=== PATIENT | female | born 1950 | race Caucasian/White ===

== ENCOUNTER 2023-07-08 06:22 | Inpatient (IN) | payer MEDICARE, OTHER ==
[~2023-07-08] VITALS: Ht 167.6 cm; Wt 96.2 kg
[2023-07-08] MEDS ORDERED: MORPHINE SULFATE INJ 2 MG/ML DISP.SYRIN ONE ×2 (06:53→08:13)
[2023-07-08] MEDS ORDERED: MORPHINE SULFATE INJ 2 MG/ML DISP.SYRIN IV ONE ×3 (07:00→08:00)
[2023-07-08] MEDS ORDERED: MORPHINE SULFATE INJ 4 MG/ML DISP.SYRIN ONE (07:32)
[2023-07-08 07:35] LABS: BASOPHILS % (AUTO) 0.4 % (0.0-2.0); EOSINOPHILS # (AUTO) 0.1 K/uL (0.0-0.7); EOSINOPHILS % (AUTO) 0.8 % (0.0-6.0); HEMATOCRIT 41 % (33-45); HEMOGLOBIN 13.2 g/dL (11.5-14.8); LYMPHOCYTES % (AUTO) 49.3 % (20.0-44.0); MEAN CORPUSCULAR HEMOGLOBIN 30 PG (26.0-33.0); MEAN CORPUSCULAR HGB CONC 33 g/dl (31.0-36.0); MEAN CORPUSCULAR VOLUME 93 fL (82-100); MONOCYTES # (AUTO) 0.4 K/uL (0.1-1.30); MONOCYTES % (AUTO) 5.3 % (2.0-12.0); NEUTROPHILS # (AUTO) 3.6 K/uL (1.8-8.9); NEUTROPHILS % (AUTO) 44.2 % (43.0-81.0); PLATELET COUNT (AUTO) 223 K/uL (150-450); WHITE BLOOD COUNT (AUTO) 8.1 K/uL (4.3-11.0)
[2023-07-08 07:44] LABS: CALCIUM, SERUM 8.9 mg/dL (8.5-10.1); CARBON DIOXIDE 27 mmol/L (21-32); CHLORIDE 109 mmol/L (98-107); CREATININE 0.7 mg/dL (0.6-1.3); GLUCOSE 133 mg/dL (74-106); POTASSIUM 4.7 mmol/L (3.5-5.1); SODIUM SERUM 141 mmol/L (136-145); UREA NITROGEN, BLOOD 25 mg/dL (7-18)
[2023-07-08 07:49] LABS: ALANINE AMINOTRANSFERASE 26 U/L (12-78); ALBUMIN 3.4 g/dL (3.4-5.0); ALKALINE PHOSPHATASE 63 U/L (46-116); ASPARTATE AMINOTRANSFERASE 14 U/L (15-37); BILIRUBIN,DIRECT 0.1 mg/dL (0.0-0.2); BILIRUBIN,TOTAL 0.5 mg/dL (0.2-1.0); TOTAL PROTEIN, SERUM 7.1 g/dL (6.4-8.2)
[2023-07-08 07:52] LABS: INR 1.12 (0.91-1.10); PARTIAL THROMBOPLASTIN TIME 23.8 SEC (24.3-34.3); PROTHROMBIN TIME 11.7 SECS (9.2-11.1)
[2023-07-08] MEDS ORDERED: Z GUARD REMEDY 4 OZ OINT TP PRN (11:00)
[2023-07-08] MEDS ORDERED: MAGNESIUM HYDROXIDE 30 ML UDC PO PRN (11:00)
[2023-07-08] MEDS ORDERED: MAG HYDROX/AL HYDROX/SIMETH 30 ML UDC PO PRN (11:00)
[2023-07-08] MEDS ORDERED: PANTOPRAZOLE 40 MG VIAL IV SCH (11:00)
[2023-07-08] MEDS ORDERED: ACETAMINOPHEN 325 MG TABLET PO PRN (11:00)
[2023-07-08] MEDS ORDERED: ONDANSETRON HCL/PF 4 MG/2 ML VIAL IVP PRN (11:00)
[2023-07-08] MEDS: MORPHINE SULFATE INJ 4 MG/ML DISP.SYRIN IV PRN ×3 (11:31→21:33)
[2023-07-08 12:00] VITALS: BP 165/86; TEMP 98.2; O2SAT 97
[2023-07-08] MEDS: IV 1/2NS 1000 ML 1,000 ML IV PRN (12:25)
[2023-07-08] MEDS ORDERED: PANT20TA2 PO (15:05)
[2023-07-08] MEDS ORDERED: METO25TA3 PO (15:05)
[2023-07-08] MEDS ORDERED: OLME1TAB16 PO (15:05)
[2023-07-08] MEDS ORDERED: ESCI20TA PO (15:05)
[2023-07-08] MEDS ORDERED: CLON0.1T PO (15:05)
[2023-07-08] MEDS ORDERED: LOVA10TA PO (15:05)
[2023-07-08] MEDS: ENOXAPARIN SODIUM 40 MG/0.4 ML DISP.SYRIN SQ SCH (15:12)
[2023-07-08 16:00] VITALS: BP 157/77; TEMP 99; O2SAT 96
[2023-07-08 20:00] VITALS: BP 149/82; TEMP 98.8; O2SAT 96
[2023-07-09] VITALS (7 sets, daily range): BP systolic 133–175; BP diastolic 68–79; TEMP 97.9–99.5; O2SAT 95–98
[2023-07-09] MEDS: MORPHINE SULFATE INJ 4 MG/ML DISP.SYRIN IV PRN ×3 (01:44→10:22)
[2023-07-09] MEDS: IV 1/2NS 1000 ML 1,000 ML IV PRN ×2 (01:44→17:52)
[2023-07-09 06:13] LABS: BASOPHILS % (AUTO) 0.3 % (0.0-2.0); EOSINOPHILS # (AUTO) 0.1 K/uL (0.0-0.7); EOSINOPHILS % (AUTO) 0.9 % (0.0-6.0); HEMATOCRIT 39 % (33-45); LYMPHOCYTES % (AUTO) 31.2 % (20.0-44.0); MEAN CORPUSCULAR HEMOGLOBIN 30 PG (26.0-33.0); MEAN CORPUSCULAR HGB CONC 33 g/dl (31.0-36.0); MEAN CORPUSCULAR VOLUME 91 fL (82-100); MONOCYTES # (AUTO) 0.6 K/uL (0.1-1.30); MONOCYTES % (AUTO) 6.2 % (2.0-12.0); NEUTROPHILS % (AUTO) 61.4 % (43.0-81.0); PLATELET COUNT (AUTO) 208 K/uL (150-450); RED BLOOD CELL COUNT(AUTO) 4.29 MIL/uL (4.0-5.2); RED CELL DISTRIBUTION WIDTH 13.6 % (11.5-15.0); WHITE BLOOD COUNT (AUTO) 9.8 K/uL (4.3-11.0)
[2023-07-09 06:34] LABS: CALCIUM, SERUM 8.5 mg/dL (8.5-10.1); CREATININE 0.6 mg/dL (0.6-1.3); PHOSPHORUS 3.9 mg/dL (2.5-4.9); POTASSIUM 3.9 mmol/L (3.5-5.1)
[2023-07-09 07:07] LABS: THYROID STIMULATING HORMONE 1.189 uIU/mL (0.358-3.74)
[2023-07-09] MEDS: ATORVASTATIN 10 MG TABLET PO SCH (09:00)
[2023-07-09] MEDS: METOPROLOL SUCCINATE 25 MG TAB.SR.24H PO SCH (09:00)
[2023-07-09] MEDS: CLONIDINE HCL 0.1 MG TABLET PO SCH (09:00)
[2023-07-09] MEDS: ESCITALOPRAM OXALATE (10 MG) 10 MG TABLET PO SCH (09:00)
[2023-07-09] MEDS: ENOXAPARIN SODIUM 40 MG/0.4 ML DISP.SYRIN SQ SCH (09:00)
[2023-07-09] MEDS: PANTOPRAZOLE 40 MG TABLET.DR PO SCH (09:00)
[2023-07-09] MEDS ORDERED: ANESTHESIA TRAY IN PYXIS 1 EA TRAY MC ONE ×2 (11:20→16:18)
[2023-07-09] MEDS ORDERED: POLYMYXIN B SULFATE 500,000 UNITS ONE (11:20)
[2023-07-09] MEDS ORDERED: TRANEXAMIC ACID 1,000 MG/10 ML VIAL ONE ×3 (11:21→13:10)
[2023-07-09] MEDS ORDERED: BUPIVACAINE 0.5 % PF 150 MG/30 ML VIAL ONE (11:21)
[2023-07-09] MEDS ORDERED: FENTANYL PF 100MCG/2ML AMPUL ONE (12:07)
[2023-07-09] MEDS ORDERED: Magnesium 1 GM/2 ML VIAL ONE ×2 (12:07→13:07)
[2023-07-09] MEDS ORDERED: ALBUMIN 5% 250 ML IV ONE (12:08)
[2023-07-09] MEDS ORDERED: ROCURONIUM BROMIDE 50 MG/5 ML ONE (12:08)
[2023-07-09] MEDS ORDERED: MIDAZOLAM HCL 2 MG/2ML VIAL ONE (12:08)
[2023-07-09] MEDS ORDERED: FAMOTIDINE/PF INJ 20 MG/2 ML VIAL IV ONE (12:08)
[2023-07-09] MEDS ORDERED: hydrALAZINE HCL IV 20 MG VIAL ONE (13:11)
[2023-07-09] MEDS ORDERED: SEVOFLURANE 250 ML BOTTLE IH ONE (13:11)
[2023-07-09] MEDS ORDERED: ROPIVACAINE HCL 0.5% 5 MG/ML 30ML VIAL ONE (13:39)
[2023-07-09] MEDS ORDERED: ROPIVACAINE HCL 0.5% 5 MG/ML 30ML VIAL IJ STA (13:47)
[2023-07-09] MEDS: CEFAZOLIN 2 GM in IV D5W 100 ML IV SCH (20:19)
[2023-07-10] MEDS: CEFAZOLIN 2 GM in IV D5W 100 ML IV SCH ×2 (04:25→12:37)
[2023-07-10] MEDS: MORPHINE SULFATE INJ 4 MG/ML DISP.SYRIN IV PRN ×3 (04:31→15:36)
[2023-07-10 06:25] LABS: CALCIUM, SERUM 8.5 mg/dL (8.5-10.1); CREATININE 0.9 mg/dL (0.6-1.3); MAGNESIUM 2.1 mg/dL (1.8-2.4); POTASSIUM 4.4 mmol/L (3.5-5.1)
[2023-07-10 06:36] LABS: HEMATOCRIT 36 % (33-45); MEAN CORPUSCULAR HEMOGLOBIN 31 PG (26.0-33.0); MEAN CORPUSCULAR HGB CONC 34 g/dl (31.0-36.0); MEAN CORPUSCULAR VOLUME 91 fL (82-100); PLATELET COUNT (AUTO) 181 K/uL (150-450); RED BLOOD CELL COUNT(AUTO) 3.93 MIL/uL (4.0-5.2); RED CELL DISTRIBUTION WIDTH 13.8 % (11.5-15.0); WHITE BLOOD COUNT (AUTO) 11.9 K/uL (4.3-11.0)
[2023-07-10 08:00] VITALS: BP 149/73; TEMP 97.7; O2SAT 98
[2023-07-10] MEDS: PANTOPRAZOLE 40 MG TABLET.DR PO SCH (08:50)
[2023-07-10] MEDS: ESCITALOPRAM OXALATE (10 MG) 10 MG TABLET PO SCH (09:00)
[2023-07-10] MEDS: CLONIDINE HCL 0.1 MG TABLET PO SCH (09:07)
[2023-07-10] MEDS: METOPROLOL SUCCINATE 25 MG TAB.SR.24H PO SCH (09:11)
[2023-07-10] MEDS: ATORVASTATIN 10 MG TABLET PO SCH (09:11)
[2023-07-10] MEDS: ENOXAPARIN SODIUM 40 MG/0.4 ML DISP.SYRIN SQ SCH (11:00)
[2023-07-10 16:00] VITALS: BP 115/58; TEMP 99.3; O2SAT 98
[2023-07-10] MEDS: HYDROCODONE/APAP 5/325MG TABLET PO PRN (17:00)
[2023-07-10 20:00] VITALS: BP 114/62; TEMP 99; O2SAT 97
[2023-07-11 07:14] LABS: CREATININE 0.8 mg/dL (0.6-1.3); POTASSIUM 4.4 mmol/L (3.5-5.1)
[2023-07-11 07:26] LABS: CALCIUM, SERUM 8.4 mg/dL (8.5-10.1)
[2023-07-11 08:00] VITALS: BP 132/61; TEMP 97; O2SAT 98
[2023-07-11] MEDS: MORPHINE SULFATE INJ 4 MG/ML DISP.SYRIN IV PRN ×2 (08:10→13:29)
[2023-07-11] MEDS: ENOXAPARIN SODIUM 40 MG/0.4 ML DISP.SYRIN SQ SCH (09:06)
[2023-07-11] MEDS: ESCITALOPRAM OXALATE (10 MG) 10 MG TABLET PO SCH (09:06)
[2023-07-11] MEDS: METOPROLOL SUCCINATE 25 MG TAB.SR.24H PO SCH (09:07)
[2023-07-11] MEDS: ATORVASTATIN 10 MG TABLET PO SCH (09:08)
[2023-07-11] MEDS: PANTOPRAZOLE 40 MG TABLET.DR PO SCH (09:08)
[2023-07-11 09:09] VITALS: BP 132/61
[2023-07-11] MEDS: CLONIDINE HCL 0.1 MG TABLET PO SCH (09:09)
[2023-07-11] MEDS: HYDROCODONE/APAP 5/325MG TABLET PO PRN ×2 (10:14→19:51)
== END 2023-07-11 20:20 | DRG 956 ==
LOC: ER 07:22 → MED 09:40
PROVIDERS: ADMIT Nurse Practitioner Acute Care
PROC: 0SRS0JZ Replacement of Left Hip Joint, Femoral Surface with Synthetic Substitute, Open Approach (ICD-10-PCS; principal; 2023-07-09)
DX: S72.002A Fracture of unspecified part of neck of left femur, initial encounter for closed fracture (principal); S06.9X9A Unspecified intracranial injury with loss of consciousness of unspecified duration, initial encounter; J18.9 Pneumonia, unspecified organism; N17.9 Acute kidney failure, unspecified; W01.0XXA Fall on same level from slipping, tripping and stumbling without subsequent striking against object, initial encounter; Z20.822 Contact with and (suspected) exposure to COVID-19; I10 Essential (primary) hypertension; Y92.009 Unspecified place in unspecified non-institutional (private) residence as the place of occurrence of the external cause; E78.5 Hyperlipidemia, unspecified; K21.9 Gastro-esophageal reflux disease without esophagitis; F32.A Depression, unspecified; Z90.710 Acquired absence of both cervix and uterus; Z68.34 Body mass index [BMI] 34.0-34.9, adult; E66.9 Obesity, unspecified; G47.33 Obstructive sleep apnea (adult) (pediatric); R73.03 Prediabetes
CPT/HCPCS: 36415; 70450-TC; 71045-TC; 73020; 73700-TC; 80048-TC; 80061-TC; 80076-TC; 83735-TC; 84100-TC; 84443-TC; 85025-TC; 85027-TC; 85730-TC; 93307-TC; 97110-TC; 97116-TC; 97530-TC; A4217; A4223; A6209; C1751; C1776; C9113; G0378; J0360; J0690; J1100; J1650; J2250; J2270; J2370; J2405; J2704; J2765; J2795; J3010; J3475; J3490; J7060; P9045